=== PATIENT | male | born 1970 | race Two or more races ===

== ENCOUNTER 2023-06-19 14:52 | Emergency (ER) | payer MEDICAID, OTHER ==
[~2023-06-19] VITALS: Ht 165.1 cm; Wt 73.6 kg
[2023-06-19 17:58] VITALS: BP 145/80; PULSE 75; RESP 19; TEMP 98.3; O2SAT 99
[2023-06-19] MEDS ORDERED: KETOROLAC TROMETH 30 MG/ML 1ML VIAL IM ONE (18:15)
[2023-06-19] MEDS ORDERED: BACDST PO (18:21)
[2023-06-19] MEDS ORDERED: IBUP-1455 PO (18:21)
== END 2023-06-19 18:34 | disposition home or self-care (01) ==
LOC: ER 14:52
DX: L02.11 Cutaneous abscess of neck (principal)
CPT/HCPCS: 96372; 99283; J1885